=== PATIENT | female | born 1990 | race Caucasian/White ===

== ENCOUNTER 2016-10-02 07:02 | Inpatient (IN) ==
[2016-10-02] MEDS ORDERED: PEPCID PO PRN (07:59)
[2016-10-02] MEDS ORDERED: ZOFRAN IV PRN (07:59)
[2016-10-02] MEDS ORDERED: TYLENOL PO PRN (07:59)
[2016-10-02] MEDS ORDERED: KEFZOL 1 GM/D5W 1 GM/50 ML IVPB IV PRN (07:59)
[2016-10-02] MEDS ORDERED: PEPCID IV PRN (07:59)
[2016-10-02] MEDS ORDERED: PEPCID PO ONE (07:59)
[2016-10-02] MEDS ORDERED: PITOCIN 30 UNITS/LR 30 UNITS/500 ML IV.SOLN IV SCH (07:59)
[2016-10-02] MEDS ORDERED: STADOL IV PRN (07:59)
[2016-10-02] MEDS ORDERED: REGLAN PO ONE (07:59)
[2016-10-02] MEDS ORDERED: SODIUM CHLORIDE 0.9% INJ SCH (08:00)
[2016-10-02] MEDS: LR 1,000 ML IV SCH ×2 (08:45→09:30)
[2016-10-02] MEDS ORDERED: FENTANYL-BUPIV-NS 2 MCG-0.1% 200 ML ONE (09:11)
[2016-10-02 09:14] LABS: MANUAL DIFF NEEDED? NO
[2016-10-02 09:14] LABS: URINE SOURCE VOIDED
[2016-10-02] MEDS ORDERED: STADOL ONE (09:16)
[2016-10-02 09:28] LABS: BILIRUBIN URINE NEGATIVE (NEGATIVE); BLOOD URINE NEGATIVE (NEGATIVE); CLARITY CLEAR (CLEAR); COLOR YELLOW; GLUCOSE URINE NEGATIVE (NEGATIVE); LEUKOCYTES URINE 1+ (NEGATIVE); NITRITE URINE NEGATIVE (NEGATIVE); PROTEIN URINE NEGATIVE (NEGATIVE); SP GRAVITY URINE 1.005; UROBILINOGEN URINE NORMAL
[2016-10-02 09:29] LABS: BASO% 0.2 % (0.0-0.8); EOS# 0.15 X1000 (0.0-0.7); EOS% 1.3 % (0.0-10.0); HEMATOCRIT 34.5 % (37.0-47.0); HEMOGLOBIN 11.6 g/dL (12.0-16.0); IMM GRAN# 0.03 X1000 (0.0-0.04); IMM GRAN% 0.3 % (0.0-0.5); LYMPH# 1.59 X1000 (1.2-3.4); LYMPH% 13.9 % (20.5-51.1); MCH 29.3 PG (27-31); MCHC 33.6 g/dL (33-37); MCV 87.1 FL (81-99); MONO# 0.54 X1000 (0.11-0.59); MONO% 4.7 % (1.7-9.3); MPV 11.5 FL (7.4-10.4); NEUT% 79.6 % (42.2-75.2); PLT 201 X1000 (130-400); RBC 3.96 XMIL (4.2-5.4)
[2016-10-02] MEDS ORDERED: FENTANYL-BUPIV-NS 2 MCG-0.1% 200 ML EPIDURAL PRN (09:42)
[2016-10-02] MEDS ORDERED: XYLOCAINE-MPF 1% INJ PRN (17:10)
[2016-10-02] MEDS ORDERED: BENADRYL IV PRN (17:10)
[2016-10-02] MEDS ORDERED: HYDROXYZINE PO PRN (17:10)
[2016-10-02] MEDS ORDERED: PERI MEDS (DERMOPLAST/NUPERCAINAL/TUCKS) MISC PRN (17:10)
[2016-10-02] MEDS ORDERED: HYDROXYZINE IM PRN (17:10)
[2016-10-02] MEDS ORDERED: MINERAL OIL PO PRN (17:10)
[2016-10-02] MEDS ORDERED: BENADRYL PO PRN (17:10)
[2016-10-02] MEDS ORDERED: AMBIEN PO PRN (17:10)
[2016-10-02] MEDS ORDERED: CYTOTEC PO PRN (17:10)
[2016-10-02] MEDS ORDERED: PITOCIN IM PRN (17:10)
[2016-10-02] MEDS ORDERED: BOOSTRIX VACCINE IM ONE (17:10)
[2016-10-02] MEDS ORDERED: PITOCIN 20 UNITS/LR 20 UNITS/1,000 ML IV.SOLN IV SCH (17:10)
[2016-10-02] MEDS ORDERED: M-M-R II VACCINE SUBQ ONE (17:10)
[2016-10-02] MEDS ORDERED: PITOCIN 30 UNITS/LR 30 UNITS/500 ML IV.SOLN IV ONE (17:10)
[2016-10-02] MEDS: MOTRIN PO PRN (18:20)
[2016-10-02] MEDS: PERICOLACE PO SCH (20:53)
[2016-10-02] MEDS: NORCO-5 PO PRN (20:56)
[2016-10-03] MEDS: NORCO-5 PO PRN (00:06)
[2016-10-03] MEDS: NORCO-10 PO PRN ×5 (03:32→21:08)
[2016-10-03] MEDS: MOTRIN PO PRN ×3 (03:32→21:08)
--- NOTE | 2016-10-03 03:52 | OPERATIVE NOTE ---
PROCEDURE DATE: 10/02/2016 DELIVERY NOTE: The patient underwent a sterile controlled spontaneous vaginal delivery of a viable male , weight and Apgars currently unavailable. No nuchal, no dystocia. Cord doubly clamped and cut. Infant handed off. Cord blood obtained. Placenta delivered spontaneously and intact. Uterus firm with Pitocin and massage. Uterus cervix and vagina explored. A first-degree posterior midline laceration repaired with 3-0 chromic in the normal fashion. A right vaginal laceration repaired with 2-0 chromic in the usual fashion. Both hemostatic. No complications. Estimated blood loss 250 mL. cc: Christal Nunez MD
[2016-10-03 06:35] LABS: HEMATOCRIT 30.2 % (37.0-47.0); HEMOGLOBIN 9.8 g/dL (12.0-16.0); MCH 28.7 PG (27-31); MCHC 32.5 g/dL (33-37); MCV 88.3 FL (81-99); MPV 11.6 FL (7.4-10.4); RBC 3.42 XMIL (4.2-5.4)
[2016-10-03] MEDS ORDERED: EPIFOAM FOAM TOP PRN (08:49)
[2016-10-03] MEDS: PERICOLACE PO SCH (21:04)
[2016-10-04] MEDS: NORCO-10 PO PRN ×2 (03:04→08:27)
[2016-10-04] MEDS: MOTRIN PO PRN (08:26)
--- NOTE | 2016-10-04 15:53 | DISCHARGE SUMMARY ---
ADMISSION DATE: 10/02/2016 DISCHARGE DATE: 10/04/2016 ADMIT DIAGNOSES: Term . DISCHARGE DIAGNOSES: delivered. CONDITION: Stable. DIET: As tolerated. ACTIVITY: Routine . MEDICATIONS: She is to resume vitamins with iron. She is taking over the counter stool softeners and [id number] nonsteroidals and prescription for [place] 5. FOLLOWUP: She is to follow up in [address] Longoria. HISTORY AND HOSPITAL COURSE: Please refer to Ms. Beal's records and delivery note. She presented at term. Had a vaginal delivery. Has done well afterwards. Currently day 2 without complaints, desiring discharge. PHYSICAL EXAMINATION: Vital signs: Are stable. She is afebrile. Pulse rate in the low 100s, however, she denies weakness or dizziness. Neck: Supple. Lungs: Clear. Heart: Regular sinus rhythm. Abdomen: Distended. Uterus is firm. Extremities: +2 lower extremity edema. LABS: Post delivery hemoglobin 9.8. PLAN: We will discharge with above instructions. cc: MD Christal Gaona MD
== END 2016-10-04 12:15 | disposition home or self-care (01) ==
LOC: P.NBC 07:02 → P.LD 07:19 → P.WC 10-03 06:06
PROVIDERS: ADMIT Obstetrics & Gynecology; ATTEND Obstetrics & Gynecology